=== PATIENT | male | born 1985 | race Caucasian/White ===

== ENCOUNTER 2017-04-11 11:08 | Emergency (ER) | payer OTHER ==
[~2017-04-11] VITALS: Ht 185.4 cm; Wt 86.2 kg
[2017-04-11] MEDS ORDERED: AMOXICILLIN500 M2 PO (11:53)
== END 2017-04-11 12:30 | disposition home or self-care (01) ==
LOC: ED 11:08
DX: K08.89 Other specified disorders of teeth and supporting structures (principal); F17.200 Nicotine dependence, unspecified, uncomplicated; Z91.030 Bee allergy status; Z91.013 Allergy to seafood